=== PATIENT | female | born 1935 | race Caucasian/White ===

== ENCOUNTER 2016-08-18 20:31 | Emergency (ER) | payer MEDICARE, OTHER ==
--- NOTE | 2016-08-18 22:00 | ERNOTE ---
Upper Extremity HPI - General Extremities Pain Location: collar-bone area: right, shoulder: right, arm: right , elbow: right, forearm: right, hand: right Time Seen by Provider: 08/18/16 21:49 Source: patient, family Exam Limitations: no limitations - Immun/Allergies/Home Medications Immunizations: IMMUNIZATION HX Immunizations Up to Date Yes History of Influenza Vaccine No Hx Pneumococcal Vaccination No Allergies/Adverse Reactions: Allergies Allergy/AdvReac Type Severity Reaction Status Date / Time Penicillins Allergy Intermediate Hives Verified 02/24/16 22:45 Sulfa (Sulfonamide Allergy Verified 05/23/14 16:05 Antibiotics) [Sulfa(Sulfonamide Antibiotics)] aspirin AdvReac Mild Headache Verified 02/24/16 22:45 codeine [Codeine] AdvReac Mild Nausea Verified 02/24/16 22:45 morphine AdvReac Mild Diarrhea Verified 02/24/16 22:45 Home Medications: HOME MEDICATIONS Clopidogrel Bisulfate [Clopidogrel] 75 mg PO DAILY 03/23/12 [Last Taken 05/22/12 ] FLUoxetine HCL [Prozac] 20 mg PO DAILY 03/23/12 [Last Taken 05/22/12] Levothyroxine Sodium 75 mcg PO DAILY 03/23/12 [Last Taken 05/22/12] Multivitamin [Multivitamins] 1 each PO DAILY 03/23/12 [Last Taken 05/22/12] Wauseon-3 Fatty Acids/Fish Oil [Fish Oil 1,000 mg Capsule] 1 each PO DAILY [Last Taken 05/22/12] Simvastatin 40 mg PO DAILY 03/23/12 [Last Taken 05/22/12] amLODIPine BESYLATE [Norvasc (Amlodipine)] 5 mg PO DAILY 03/23/12 [Last Taken ] Enalapril Maleate [Vasotec] 5 mg PO 08/18/16 [Last Taken Unknown] Methylprednisolone [Medrol Dosepak] 4 mg PO DAILY #21 tab.ds.pk 08/18/16 [Last Taken Unknown] Potassium 99 mg PO 08/18/16 [Last Taken Unknown] - History of Present Illness Narrative: Pt fell striking her right arm and shoulder 2 weeks ago. She continues to have pain and difficulty moving her right arm due to pain. Occurred: last week Location of Incident: home Severity: moderate Method of Injury: Reports: fell Reason for Fall: Reports: lost balance Loss of Consciousness: Reports: no loss of consciousness Modifying Factors - (Improves): Reports: cold therapy Modifying Factors - (Worsens): Reports: movement Other Injuries: Reports: none Review of Systems - Review of Systems Constitutional: Present: no symptoms reported EYE: Present: no symptoms reported ENT: Present: no symptoms reported Respiratory: Absent: shortness of breath Cardiology: Present: no symptoms reported Gastrointestinal/Abdominal: Present: no symptoms reported Genitourinary: Present: no symptoms reported Musculoskeletal: Present: See HPI Skin: Present: no symptoms reported Neurological: Present: tingling - in her right hand at times Endocrine: Present: no symptoms reported Hematologic/Lymphatic: Present: no symptoms reported Psych: Present: no symptoms reported - Patient's Past Medical History Patient History - Medical: Anxiety, Diabetes Type 2, Depression, Hypothyroidism , Osteoarthritis Patient History - Cardiac/Respiratory: CVA/Stroke, Hypertension, Hyperlipidemia , Myocardial Infarction Patient History - Cancer: Skin Patient History - Surgical Procedures: Coronary Bypass Surgery, Total Knee Replacement Patient History - Other: None - Social History Living Situations: other Abuse History: No History of abuse Psych History: No pertinent hx, Hx of Anxiety, Hx of Depression Smoking Status: Never smoker Alcohol Use: none Drug Use: none - Immunizations Immunizations Up to Date: Yes Hx Pneumococcal Vaccination: No History of Influenza Vaccine: No Physical Exam - Physical Exam General Appearance: Present: wd/wn, alert, no apparent distress Neck: Present: normal inspection, limited range of motion, tender lateral - trapezius bilateral Respiratory: Present: no respiratory distress Back Exam: Present: normal inspection, no vertebral tenderness Extremity Exam: Present: normal range of motion - wrist and elbow, decreased range of motion - right shoulder only 20-30 degree ROM in all planes of motion Neurological Exam: Present: alert, oriented, normal mood/affect Skin Exam: Present: normal color, warm/dry ED Progress - Vital Signs Vital Signs: Vital Signs 08/18/16 21:00 Temperature 37.2 C Pulse Rate 64 Respiratory 16 Rate Blood Pressure 157/90 O2 Sat by Pulse 96 Oximetry - X-Ray X-Ray #1 X-Ray: shoulder Interpretation: Reviewed by me X-ray Comments: IMPRESSION: 1. NO ACUTE OSSEOUS ABNORMALITY. 2. DIFFUSE OSTEOPENIA. 3. WIDENING OF THE ACROMIOCLAVICULAR JOINT WHICH IS SIMILAR TO PRIOR STUDY FROM 2011. Electronically signed by Garrett Epps M.D.. X-Ray #2 X-Ray: forearm Interpretation: Reviewed by me X-ray Comments: IMPRESSION: 1. DIFFUSE OSTEOPENIA. 2. NO ACUTE OSSEOUS ABNORMALITY. Electronically signed by Garrett Epps M.D.. X-Ray #3 X-Ray: c-spine Interpretation: Reviewed by me X-ray Comments: IMPRESSION: 1. NORMAL PREVERTEBRAL SOFT TISSUES. 2. NO ACUTE OSSEOUS ABNORMALITY; CLINICAL CORRELATION IS STILL REQUIRED. 3. MODERATE DISC SPACE NARROWING AT C5-6, C6-7, AND C7-T1. Electronically signed by Garrett Epps M.D.. - Progress/Reassessment Chief Complaint: Upper Extremity Injury/Problem Departure Clinical Impression: Cervical radiculitis - Departure Disposition: Home self-care Condition: Good Instructions: Cervical Radiculopathy, [id number] Referrals: Kofi Pulido MD [Primary Care Provider] - Prescriptions: Methylprednisolone [Medrol Dosepak] 4 mg PO DAILY #21 tab.ds.pk
--- OUTSIDE RECORDS SUMMARY | 2016-08-18 22:31 | XMS REPORT | Continuity of Care Document ---
:1935 Author Organization [facility] ([facility]) Address [address] [place] [address] Phone [phone] Care Team Providers Name Role Phone Unavailable Primary Care Provider Unavailable Source Comments This disclosure is being made pursuant to the Care Everywhere program, applicable federal and state laws, and may not contain all informaitonavailable regarding this patient.[facility] ([facility]) Active Allergies and Adverse Reactions Not on File Current Medications Not on file Active Problems Not on file Social History Tobacco Use Types Packs/Day Years Used Date Never Assessed Plan of Care Health Maintenance Due Date Last Done Comments Hepatitis B Vaccine (1 of 3 - Primary Series) 1935 Tdap Vaccine 1946 Lipid Disorder Screening 1953 Td Vaccine 1953 Colonoscopy 01/27/1985 Zoster Vaccine 1995 Osteoporosis Screening (DXA Bone Density) 01/29/2000 Pneumococcal Vaccine (1 of 2 - PCV13) 01/29/2000 Influenza Vaccine: Seasonal (#1) 11/25/2015 Results from Last 3 Months Not on file
[2016-08-18] MEDS ORDERED: DEXAMETHASONE SOD PHOSPHATE 10 MG/ML VIAL IM ONE (23:02)
[2016-08-18] MEDS ORDERED: METHYLPREDNISOLONE ACETATE 80 MG/ML VIAL IM ONE (23:02)
[2016-08-18] MEDS ORDERED: METHYLPREDNISOLONE ACETATE 80 MG/ML VIAL ONE (23:14)
[2016-08-18] MEDS ORDERED: DEXAMETHASONE SOD PHOSPHATE 10 MG/ML VIAL ONE (23:15)
[2016-08-18 23:47] VITALS: BP 142/86
== END 2016-08-18 23:45 | disposition home or self-care (01) ==
LOC: ER 20:31
DX: M54.12 Radiculopathy, cervical region (principal); Z85.828 Personal history of other malignant neoplasm of skin; I10 Essential (primary) hypertension; E78.5 Hyperlipidemia, unspecified; F41.9 Anxiety disorder, unspecified; Z86.73 Personal history of transient ischemic attack (TIA), and cerebral infarction without residual deficits

== ENCOUNTER 2017-04-16 10:15 | Day surgery (SDC) | payer MEDICARE, OTHER ==
[~2017-04-16 10:15] MED LIST: RINGER'S SOLUTION,LACTATED 1,000 ML IV PRN; ceFAZolin SODIUM 1 GM VIAL IV PRN
[2017-04-16] MEDS ORDERED: BUPIVACAINE HCL 50 ML VIAL IJ ONE ×2 (11:05)
--- NOTE | 2017-04-16 11:20 | POSTOP NO ---
Date of Surgery: 04/16/17 Patient Tolerated the Procedure: Well Post Operative Diagnosis/Procedures: Swat Team Member: Sixto John PA-C Post-operative Diagnosis: Right carpal tunnel syndrome Finding: Above Procedure: Right endoscopic carpal tunnel release Estimated Blood Loss: Minimal Specimens: None
--- NOTE | 2017-04-16 11:21 | OR ---
Operative Report - Dictated Report Narrative: Date: 04/16/2017 Physician: Topher Johnson M.D. Skein Bleacher: Sixto John PA-C Preoperative diagnosis: Right carpal tunnel syndrome Postoperative diagnosis: Right carpal tunnel syndrome Procedure: Endoscopic right carpal tunnel release Anesthesia: MAC plus local Complications: None Estimated blood loss: Minimal Tourniquet time: 7 Minutes at 250 mmHg Specimens: None Retained implants: None Drains: None Indications: Mrs. Deleon Is a 82-year-old female who has been followed in my clinic with complaints of carpal tunnel syndrome. Physical exam as well as diagnostic testing showed compression of the median nerve compatible with carpal tunnel syndrome. Conservative measures have failed including but not limited to activity modification, medications, and/or bracing. The risks, benefits, and alternatives were discussed in clinic. The risks being bleeding, infection, nerve, tendon, blood vessel injury, persistent pain, wound competitions, weakness, palm pain, need for additional procedures, and persistent symptoms. Consent was obtained in the clinic. Procedure: After marking the correct extremity in the preoperative holding area, a timeout was performed in the operating room. IV antibiotics consisting of Ancef were administered prior to the procedure. A well-padded tourniquet was applied to the operative upper arm. The arm was then prepped and draped in a standard sterile fashion. The arm was exsanguinated and the tourniquet was inflated to 250 mmHg. 0.5% Marcaine without epinephrine was infused into the projected portal sites. Using Loupe magnification, a transverse incision was made in the proximal wrist flexion crease just ulnar to the ulnar to the palmaris longus tendon or in line with approximately the ring finger. Blunt dissection and hemostasis with bipolar cautery was utilized down to the forearm fascia. The forearm fascia was split longitudinally just ulnar to the palmaris longus exposing the entry into the carpal tunnel. A [place] was placed under the transverse carpal ligament elevating the soft tissues under the dorsal aspect of the transverse carpal ligament. This was confirmed to be under the transverse carpal ligament based on the corrugated nature of the tissue. Once we had removed soft tissues from the transverse carpal ligament, a blunt trocar and cannula was introduced under the transverse carpal ligament exiting the palm through a niurka incision. The hand was then placed in a extension holding device and the camera was introduced into the cannula. A probe was utilized in order to ensure that all soft tissues were elevated off the dorsal aspect of the transverse carpal ligament and ensuring that all tissues were running transversely. No vascular or neurologic tissues were visualized. The push, followed by probe, followed by hook blades was utilized to transect the distal one half of the transverse carpal ligament. This allowed for ingress of fat. The camera was then placed distally looking proximally, and the proximal one half of the transverse carpal ligament was transected using the hook blade. This again allowed for ingress of fat. The probe blade was utilized in order to release any additional remaining fibers. Once it was felt that the transverse carpal ligament was completely transected, the blunt trocar was reintroduced into the trocar and removed in whole. A Ragnell was utilized in order to visualize the carpal tunnel ensuring that the transverse carpal ligament was completely released using a [place]. The distal forearm fascia was released ensuring that the median nerve was completely decompressed utilizing tenotomy scissors. Once it was felt that all the tissues overlying the median nerve were completely released, the wounds were thoroughly irrigated with saline which passed freely from the proximal to distal portal holes. Tourniquet was deflated and hemostasis was obtained with pressure as well as bipolar cautery. Once bleeding had resolved and there was no excessive bleeding , the wounds were closed with interrupted nylon. Xeroform, 4 x 4's, soft roll, and a well-padded dorsal short arm wrist splint was applied, and the patient was awoken and transferred to the postanesthesia care unit in stable condition. All sponge, needle, blade, and instrument counts were correct prior to closing the wounds. Additional 0.5% Marcaine without epinephrine was infused into the skin edges for pain control.
[2017-04-16 12:50] VITALS: BP 184/100
== END 2017-04-16 10:16 | disposition home or self-care (01) ==
LOC: AMB 10:15
PROVIDERS: ATTEND Orthopaedic Surgery
PROC: 01N54ZZ Release Median Nerve, Percutaneous Endoscopic Approach (ICD-10-PCS; principal; 2017-04-16 12:55)
DX: I11.0 Hypertensive heart disease with heart failure (principal); G56.01 Carpal tunnel syndrome, right upper limb; I50.9 Heart failure, unspecified; E11.9 Type 2 diabetes mellitus without complications; I48.91 Unspecified atrial fibrillation; E03.9 Hypothyroidism, unspecified; E78.5 Hyperlipidemia, unspecified; I25.810 Atherosclerosis of coronary artery bypass graft(s) without angina pectoris; Z86.73 Personal history of transient ischemic attack (TIA), and cerebral infarction without residual deficits; F32.9 Major depressive disorder, single episode, unspecified; Z68.35 Body mass index [BMI] 35.0-35.9, adult

== ENCOUNTER 2017-05-20 15:30 | Emergency (ER) | payer MEDICARE, OTHER ==
[2017-05-20] MEDS ORDERED: DIPHTH,PERTUSS(ACELL),TET VAC 0.5 ML VIAL IM ONE ×2 (15:54→16:02)
[2017-05-20 17:41] VITALS: BP 146/73
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
== END 2017-05-20 17:57 | disposition home or self-care (01) ==
LOC: ER 15:30
DX: S09.90XA Unspecified injury of head, initial encounter (principal); W01.0XXA Fall on same level from slipping, tripping and stumbling without subsequent striking against object, initial encounter; Y93.9 Activity, unspecified; Y92.89 Other specified places as the place of occurrence of the external cause; Y99.9 Unspecified external cause status; S00.03XA Contusion of scalp, initial encounter; M50.30 Other cervical disc degeneration, unspecified cervical region; Z23 Encounter for immunization